=== PATIENT | male | born 1970 | race American Indian/Alaskan Native ===

== ENCOUNTER 2017-05-04 18:24 | Emergency (ER) | payer MEDICAID, OTHER ==
[~2017-05-04] VITALS: Ht 170.2 cm; Wt 85.9 kg
[~2017-05-04 18:24] MED LIST: ACET-1757 PO; ASPI-621 PO; ASPI325T17 PO; ATOR-2 PO; CLOP75TA PO; ENAL2.5T PO; FURO-93 PO; HYDR-3240 PO; HYDR-3245 PO; INSU100V5 SQ-INSULIN; LISI5TAB7 PO; METF500T PO; METF500T4 PO; METO25TA35 PO; MORP2CAR IVPush; NITR0.4T28 SL; NPH,100V SQ; OMEP-110 PO; ONDA2VIA3 IV; PANT40TA5 PO; POTA10TA5 PO; SIMV40TA3 PO
[2017-05-04] MEDS ORDERED: LORazepam 2 MG/ML, 1ML IVPush ONE (19:00)
[2017-05-04] MEDS ORDERED: SODIUM CHLORIDE FLUSH 10ML SYR IVF ONE (19:00)
[2017-05-04] MEDS ORDERED: MORPHINE SULFATE 4 MG/ML, 1ML IVPush PRN (19:00)
[2017-05-04] MEDS ORDERED: ONDANSETRON 2MG/ML, 2ML IVPush ONE (19:00)
[2017-05-04] MEDS ORDERED: ASPIRIN 81 MG TABLET CHEW PO ONE (19:00)
[2017-05-04 19:11] LABS: HEMATOCRIT 47.3 % (39.2-51.8); HEMOGLOBIN 16.1 g/dL (13.7-18.0)
[2017-05-04 19:17] LABS: BLOOD UREA NITROGEN 15 mg/dL (7-18)
[2017-05-04 19:21] LABS: IS PT STATUS REG ER OR PRE ER? YES
[2017-05-04] MEDS ORDERED: ASPIRIN 81 MG TABLET CHEW ONE (19:30)
[2017-05-04] MEDS ORDERED: ONDANSETRON 2MG/ML, 2ML ONE (19:30)
[2017-05-04] MEDS ORDERED: LORazepam 2 MG/ML, 1ML ONE (19:31)
[2017-05-04] MEDS ORDERED: morphine SULFATE 10 MG/ML, 1ML ONE (19:35)
[2017-05-04] MEDS ORDERED: INSU100V5 SQ-INSULIN (19:45)
[2017-05-04] MEDS ORDERED: SODIUM CHLORIDE 0.9% 1,000ML IVBOLUS ONE (20:30)
[2017-05-04 21:55] LABS: IS PT STATUS REG ER OR PRE ER? YES
[2017-05-04 22:20] VITALS: BP 133/87
== END 2017-05-04 22:30 | disposition home or self-care (01) ==
LOC: ED 20:54
DX: R07.89 Other chest pain (principal); E11.65 Type 2 diabetes mellitus with hyperglycemia; Z79.82 Long term (current) use of aspirin
CPT/HCPCS: 36415; 71020; 80048; 82040; 83880; 84484; 85025; 93005; 96361; 96374; 96375; 99285; J2060; J2405; J7030

== ENCOUNTER 2018-03-29 22:02 | Emergency (ER) | payer OTHER ==
[~2018-03-29] VITALS: Ht 170.2 cm; Wt 90.0 kg
[~2018-03-29 22:02] MED LIST changes: +METF500T17 PO; -METF500T4 PO
[2018-03-29 22:10] VITALS: BP 118/83
[2018-03-29] MEDS ORDERED: ONDANSETRON ODT 4 MG PO ONE (23:30)
[2018-03-29] MEDS ORDERED: ONDANSETRON ODT 4 MG ONE (23:30)
[2018-03-29] MEDS ORDERED: HYDROcodone/APAP 5/325 TABLET PO ONE (23:30)
[2018-03-29] MEDS ORDERED: HYDROcodone/APAP 5/325 TABLET ONE (23:30)
== END 2018-03-29 23:53 | disposition home or self-care (01) ==
LOC: ED 23:20
DX: B02.29 Other postherpetic nervous system involvement (principal); R51 Headache; E11.9 Type 2 diabetes mellitus without complications
CPT/HCPCS: 99283; Q0162

== ENCOUNTER 2018-06-11 09:03 | Emergency (ER) | payer OTHER ==
[~2018-06-11] VITALS: Ht 170.2 cm; Wt 84.4 kg
[2018-06-11 09:21] VITALS: BP 134/97
== END 2018-06-11 09:43 | disposition home or self-care (01) ==
LOC: ED 09:30
DX: B02.29 Other postherpetic nervous system involvement (principal); E11.9 Type 2 diabetes mellitus without complications; Z79.4 Long term (current) use of insulin
CPT/HCPCS: 99283